=== PATIENT | female | born 1980 | race Caucasian/White ===

== ENCOUNTER 2019-10-20 11:23 | Outpatient (CLI) | payer OTHER | END 2019-10-20 12:12 | disposition home or self-care (01) | LOC: NST 11:23 | DX: O09.73 Supervision of high risk pregnancy due to social problems, third trimester (principal) ==

== ENCOUNTER 2019-10-30 09:02 | Inpatient (IN) | payer OTHER ==
[~2019-10-30] VITALS: Ht 167.6 cm; Wt 68.5 kg
[2019-10-30] MEDS ORDERED: PRENATAL TABLE1 EAC1 PO (09:35)
== END 2019-11-01 10:26 | disposition home or self-care (01) | DRG 807 ==
LOC: EDBD → LDR 09:02 → SURG-SUITE 18:25 → OB/GYN 11-05 11:11
PROVIDERS: ADMIT Obstetrics & Gynecology Maternal & Fetal Medicine
PROC: 10E0XZZ Delivery of Products of Conception, External Approach (ICD-10-PCS; principal; 2019-10-30)
PROC: 4A1HXCZ Monitoring of Products of Conception, Cardiac Rate, External Approach (ICD-10-PCS; 2019-10-30)
PROC: 0W8NXZZ Division of Female Perineum, External Approach (ICD-10-PCS; 2019-10-30)
PROC: 4A033R1 Measurement of Arterial Saturation, Peripheral, Percutaneous Approach (ICD-10-PCS; 2019-10-30)
DX: O80 Encounter for full-term uncomplicated delivery (principal); Z37.0 Single live birth; Z3A.39 39 weeks gestation of pregnancy